=== PATIENT | female | born 1960 | race African-American/Black ===

== ENCOUNTER 2016-09-04 11:33 | Day surgery (SDC) | payer OTHER, MEDICARE ==
--- NOTE | ~2016-09-04 | OP ---
Record Of Operation [facility] [address] [place]. [address] NAME: TOMAS ESTEVEZ : 64 STATUS : REG [facility] [place] PAT#: [id number] AGE: 56 ADM/REG DATE : 09/04/16 MR#: [id number] REPORT SERV DATE: 09/04/16 DICTATED BY: MALLORY GARCIA DATE: 09/04/16 REPORT STATUS : Draft TRANSCRIBED BY: MODL DATE: 09/04/16 DATE OF PROCEDURE: 09/04/2016 PREOPERATIVE DIAGNOSIS: Left wrist pain/TFCC injury from on-the-job injury 07/11/2007, failed conservative treatment. POSTOPERATIVE DIAGNOSIS: Left wrist pain/TFCC injury from on-the-job injury 07/11/2007, failed conservative treatment with additional scapholunate ligament tear. PROCEDURES: Left wrist: 1. Arthroscopy with debridement and repair of triangular fibrocartilage complex arthroscopically via outside-in technique using the Antunez and Nephew meniscal repair system and 0 PDS sutures x4. 2. Open scapholunate ligament repair and reconstruction using one-half of the extensor digitorum communis tendon (used as tendon graft) and the Arthrex mini SwiveLock suture anchor reinforced with Arthrex labral tape. SURGEON: Mallory Garcia M.D. MANAGER PRODUCT DESIGN: [employer]. ANESTHESIA: General. ESTIMATED BLOOD LOSS: 5 mL. COMPLICATIONS: None. DISPOSITION: The patient tolerated the procedure well and was brought to recovery room in stable condition. PROCEDURE NOTE: The patient was brought to the operating room and placed in the supine position. After general anesthesia was administered, a pneumatic tourniquet was placed around the left proximal arm and the left upper extremity distal to the tourniquet, was prepped and draped in the usual sterile manner. A surgical timeout was performed and all were in agreement. Esmarch was used to exsanguinate the extremity and tourniquet was inflated. The wrist and upper extremity was placed in the wrist arthroscopy setup system with 10 pounds of finger traction across the wrist. The 3-4 and 4-5 portal sites were made in the standard fashion and the 2.9 mm scope was placed into the 3-4 portal site and the shaver was placed into the 4-5 portal site. Additional review showed a radial tear of the TFCC, which was quite large. There was also fraying on the lateral edges of the TFCC and both sites were debrided. By the time ended up debrided back to healthy tissue was carried out, a small band of TFCC was available and it was decided that this could be repaired directly to the lateral side leaving the radial central tear without repair. This was carried out by making a small incision on the skin just lateral to ECU tendon bluntly dissecting down to the ECU tendon and moving it volar and dorsally to allow the meniscal repair system to place the PDS sutures through and around the TFCC tear. These PDS sutures Record Of Operation [facility] [address] [facility] [address] NAME: TOMAS ESTEVEZ : 64 STATUS : REG [facility] [place] PAT#: [id number] AGE: 56 ADM/REG DATE : 09/04/16 MR#: [id number] REPORT SERV DATE: 09/04/16 DICTATED BY: MALLORY GARCIA DATE: 09/04/16 REPORT STATUS : Draft TRANSCRIBED BY: JANET DATE: 09/04/16 were gathered and tagged and attention was then directed to the scapholunate tear. A shaver was used to debride the poor quality tissue and a very large central to volar scapholunate ligament tear was noted. Dorsally, the fibers were also of concern and there was gross instability. At this point, it was decided that the repair would be beneficial and an open repair/reconstruction was carried out by removing the arthroscopic instruments and making an open approach to the dorsal wrist. Open approach to the dorsal wrist was carried out by taking a 15-blade scalpel and making a 7-10 cm longitudinal incision centered over the radial carpal joint. Blunt and sharp dissection was carried out taking care to protect superficial nerves and then slightly deeper, the tendons were protected. The extensor retinaculum sheath was entered and the tendons were moved to the side. The dorsal capsule was incised and directly in view was the scapholunate ligament tear. A 2 mm to 3 mm tendon graft was harvested from the radial aspect of the extensor digitorum communis, leading to the index finger. This was put on the back table and then three separate drill holes were made from posterior to anterior in the mid lunate and then in the proximal scaphoid pole and distal scaphoid pole. The tendon graft was then harvested and an additional labral tape was used parallel with the tendon. Three separate Arthrex Mini PushLock suture anchors were then placed into the bones securing the graft in each site. The 1st hole was the proximal scaphoid pole, the 2nd was lunate hole, and the 3rd was the distal scaphoid pole. Each suture was placed in a similar manner by 1st screwing in the suture anchor and making sure that there was adequate fixation. Good position was noted of the hardware and afterwards the graft appeared in good position as well. The wrist had excellent range of motion and there was good stability of the scapholunate area. There was a negative Estrada test, and the position of the wrist was checked under fluoroscopy. Afterwards, the excess suture and graft was cut and the dorsal capsule was repaired with Vicryl suture. The extensor retinaculum was repaired with Vicryl suture and all wounds were closed with deep and running Monocryl suture. Steri-Strips, sterile dressing, and a sugar-tong splint was applied. Tourniquet was released. The patient was taken out of general anesthesia and brought to recovery room in stable condition after placing the arm in a sling. SERVANDO/JANET Mallory Garcia M.D. / [id number] CC: Mallory Garcia M.D.
[~2016-09-04 11:33] MED LIST: ALLEGRA180 PO; AMB5 PO; AMIT50 PO; ANALPRAM-HC1 CRE PR; ATIVAN2 MG PO; ATV1 PO; BACDS PO; BENTYL10 PO; BENTYL20 PO; BUSPAR10 PO; CARASPUDL PO; CARD30 PO; CARDIZEM; CARDIZEM PO; CIP2 PO; DICLOFENAC 1.3%; DIGOXIN; DIL1INJ IV; DIL2TAB PO; DIL4TAB PO; ENDOCET1 TAB PO; EXALGO PO; FLAG500TAB PO; FLAGIV500 IV; FLECTOR1.3 %; FLECTOR1.3 % TOP; FLEXERIL; FLONASE NAS; GI COCKTAIL 4040 ML PO/LIQ; HAIR PO; HAIR, SKIN, NAILS PO; HARD NAILS OR; HUMIRA 40 MG/0.8 ML IM/SC; HUMIRA PEN SC; HUMIRA SC; HYOMAX-DT PO; I20 PO; IMOD PO; INDERAL; K500 PO; KADIANSR50 PO; KAON-CL-1010 MEQ PO; L20 PO; LASIX; LEVAQ750PM IV; LEVAQUIN750 MG PO; LIDODERM T; LOM PO; LORAZEPAM; LOVENOX40 SC; LUNESTA; LUNESTA1 MG PO; LUNESTA2 M1 PO; LUNESTA2 MG PO; LUNESTA3 MG PO; MACROBID PO; MAGOX4 PO; MAXALTODT1 PO; METHOC750B PO; MORPHINE; MORPHINE PO; MSCONT15 PO; MSCONTIN PO; MULTI-VIT HP OR; MULTIPLE VIT PO; Morphine PO/LIQ; NEUR300 PO; NEUR600 PO; NEUR800 PO; NORCO1 TA2 PO; NORCO1 TAB PO; OPANA10 MG PO; OXYCODONE; OXYCON20 PO; OXYCON40 PO; OXYCONTIN30 MG PO; P10 PO; P20 PO; PERCOCET PO; PERCOCET1 TA4 PO; PERCOCET1 TA5 PO; PHENERGAN; PHENERGAN 2525 MG/ML IV; PR25 PO; PREDNISONE; PREPARATIO H PR; PREVALITE4 G1 PO; PRILO PO; PRILOSEC40 MG PO; PROPANOLOL PO; PROTONIX PO; QUESLITE PO; QUESTRAN4 GM PO; REG PO; REG5 PO; REGLAN; REGLAN PO; ROXICODONE15 MG PO; SKIN PO; STADOLNS NAS; SUCR PO; SULFADIAZINE500 MG PO; SULFASALAZINE PO; TAGAMET 200 MG200 MG PO; TAGAMET 800 MG800 MG PO; TAGAMET PO; TEARS NATURA OPH; ULTRAM50 PO; V5; VALIUM10 MG PO; VISTARIL; VSL #3; XIFAXAN550 MG PO; ZANAFLEX; ZANAFLEX 4 MG TA4 MG PO; ZANTAC; ZOFRAN4 PO; ZOL100 PO; [UNRECOGNIZED DRUG - OTHER]; [UNRECOGNIZED DRUG - OTHER] PO; [UNRECOGNIZED DRUG - OTHER] PO; [UNRECOGNIZED DRUG - OTHER] PO; [UNRECOGNIZED DRUG - OTHER] TOP
[2016-09-04 13:13] LABS: HEMOGLOBIN 11.5 g/dL (12.0-16.0)
[2016-09-04 13:14] LABS: HEMATOCRIT 33.3 % (36.0-48.0)
[2016-09-04 13:20] LABS: CHLORIDE, SERUM 109 MMOL/L (96-112); CO2 (CARBON DIOXIDE) 24 MMOL/L (24-34); CREATININE 0.68 MG/DL (0.55-1.02); GFR AFRICAN AMERICAN 115 ML/MIN (>=60); GFR NON AFRICAN AMERICAN 99 ML/MIN (>=60); GLUCOSE, SERUM 71 MG/DL (60-99); POTASSIUM, SERUM 3.6 MMOL/L (3.5-5.3); SODIUM, SERUM 142 MMOL/L (135-148)
[2016-09-04 13:21] LABS: BUN (BLOOD UREA NITROGEN) 12 MG/DL (6-23)
== END 2016-09-04 20:26 | disposition home or self-care (01) ==
LOC: SDC 11:33
PROVIDERS: Orthopaedic Surgery Hand Surgery
PROC: 0MQ60ZZ Repair Left Wrist Bursa and Ligament, Open Approach (ICD-10-PCS; 2016-09-04)
PROC: 0MQ64ZZ Repair Left Wrist Bursa and Ligament, Percutaneous Endoscopic Approach (ICD-10-PCS; principal; 2016-09-04 12:45)
DX: S63.392A Traumatic rupture of other ligament of left wrist, initial encounter (principal); S63.8X2A Sprain of other part of left wrist and hand, initial encounter; X58.XXXA Exposure to other specified factors, initial encounter; Y93.89 Activity, other specified; Y99.9 Unspecified external cause status; I74.9 Embolism and thrombosis of unspecified artery; G40.909 Epilepsy, unspecified, not intractable, without status epilepticus; G43.909 Migraine, unspecified, not intractable, without status migrainosus; M19.90 Unspecified osteoarthritis, unspecified site; M54.5 Low back pain; K50.90 Crohn's disease, unspecified, without complications; K21.9 Gastro-esophageal reflux disease without esophagitis; D64.9 Anemia, unspecified; F41.9 Anxiety disorder, unspecified; Z86.711 Personal history of pulmonary embolism; Z86.718 Personal history of other venous thrombosis and embolism; Z95.828 Presence of other vascular implants and grafts; Z88.0 Allergy status to penicillin; Z88.4 Allergy status to anesthetic agent; Z88.5 Allergy status to narcotic agent; Z88.6 Allergy status to analgesic agent; Z88.8 Allergy status to other drugs, medicaments and biological substances; Z91.048 Other nonmedicinal substance allergy status; Z79.899 Other long term (current) drug therapy; Z77.22 Contact with and (suspected) exposure to environmental tobacco smoke (acute) (chronic); Z90.89 Acquired absence of other organs; Z98.890 Other specified postprocedural states; Z90.49 Acquired absence of other specified parts of digestive tract; Z90.710 Acquired absence of both cervix and uterus; Z87.442 Personal history of urinary calculi
CPT/HCPCS: 80048; 85014; 85018; 93005; A9270-GY; C1713; J0690; J1170; J2250; J2370; J2550; J2795; J3010

== ENCOUNTER 2016-09-05 14:49 | Emergency (ER) | payer MEDICARE, OTHER | END 2016-09-05 16:42 | disposition home or self-care (01) | LOC: ER 14:49 | DX: T85.615A Breakdown (mechanical) of other nervous system device, implant or graft, initial encounter (principal); Z88.0 Allergy status to penicillin; Z88.6 Allergy status to analgesic agent; Z88.8 Allergy status to other drugs, medicaments and biological substances; Z91.09 Other allergy status, other than to drugs and biological substances; Z88.5 Allergy status to narcotic agent; Z79.899 Other long term (current) drug therapy | CPT/HCPCS: 96372; 99284; J1170; J2550 ==

== ENCOUNTER 2016-09-12 13:32 | Emergency (ER) | payer MEDICARE, OTHER | END 2016-09-12 17:36 | disposition left against medical advice (07) | LOC: ER 13:32 | DX: Z53.21 Procedure and treatment not carried out due to patient leaving prior to being seen by health care provider (principal) | CPT/HCPCS: 80048; 83735; 84484; 85025; 85610; 85730; 93005 ==

== ENCOUNTER 2016-12-03 14:45 | Emergency (ER) | payer MEDICARE, OTHER ==
[2016-12-03 15:48] LABS: BASOPHILS 0.5 %; BASOPHILS ABSOLUTE 0.02 10/3/uL (0.0-0.16); EOSINOPHILS 1.9 %; EOSINOPHILS ABSOLUTE 0.07 10/3/uL (0.0-0.53); HEMATOCRIT 30.3 % (36.0-48.0); HEMOGLOBIN 10.2 g/dL (12.0-16.0); LYMPHOCYTES 54.5 %; LYMPHOCYTES ABSOLUTE 2.05 10/3/uL (0.67-4.30); MANUAL DIFF NO %; MEAN CORPUS HGB CONC 33.7 g/dL (32.0-36.0); MEAN CORPUSCULAR HEMOGLOB 29.6 pg (26.0-34.0); MEAN CORPUSCULAR VOLUME 87.8 fL (80-100); MEAN PLATELET VOLUME 8.3 fL (9.2-13.0); MONOCYTES 8.2 %; MONOCYTES ABSOLUTE 0.31 10/3/uL (0.21-1.20); NEUTROPHILS 34.9 %; NEUTROPHILS ABSOLUTE 1.31 10/3/uL (2.02-8.40); PLATELET COUNT 274 10/3/uL (150-400); RED CELL COUNT 3.45 10/6/uL (4.0-5.6); WHITE BLOOD CELLS 3.8 10/3/uL (4.5-10.5)
[2016-12-03 15:58] LABS: INTERNATIONAL NORMAL RATI 1.2 UNITS (-); PARTIAL THROMBO TIME 54.9 SEC (22.5-37.2); PROTIME (NOT ORD) 14.7 SEC (12.0-14.5)
[2016-12-03 16:07] LABS: CALCIUM, SERUM 8.9 MG/DL (8.5-10.4); CHEST PAIN PROFILE TAT 0 Hrs 23 Mins; CHLORIDE, SERUM 108 MMOL/L (96-112); CREATININE 0.67 MG/DL (0.55-1.02); GFR AFRICAN AMERICAN 115 ML/MIN (>=60); GFR NON AFRICAN AMERICAN 100 ML/MIN (>=60); POTASSIUM, SERUM 3.5 MMOL/L (3.5-5.3); SODIUM, SERUM 142 MMOL/L (135-148); TROPONIN I <0.02 NG/ML (<0.05)
[2016-12-03 16:08] LABS: BUN (BLOOD UREA NITROGEN) 6 MG/DL (6-23); CO2 (CARBON DIOXIDE) 29 MMOL/L (24-34); GLUCOSE, SERUM 93 MG/DL (60-99)
[2016-12-03 19:03] LABS: ASCORBIC ACID (UR NOT ORDER) NEG (NEG); BILIRUBIN, URINE NEGATIVE (NEG); ER URINALYSIS TAT 0 Hrs 08 Mins; KETONE, URINE NEGATIVE (NEG); LEUKOCYTE ESTERASE(NOT OR TRACE (NEG); NITRITE (URINE) NEG (NEG); WBC (NOT ORDERED) (RFLEX) 2 (0-5)
== END 2016-12-03 16:30 | disposition home or self-care (01) ==
LOC: ER 14:45
PROVIDERS: Emergency Medicine
DX: R07.9 Chest pain, unspecified (principal); Z76.5 Malingerer [conscious simulation]; Z88.0 Allergy status to penicillin; Z88.5 Allergy status to narcotic agent; Z88.6 Allergy status to analgesic agent; Z91.048 Other nonmedicinal substance allergy status; Z88.8 Allergy status to other drugs, medicaments and biological substances; Z79.899 Other long term (current) drug therapy
CPT/HCPCS: 74022; 80048; 81001; 83735; 84484; 85025; 85610; 85730; 93005; 99285; A9270-GY